=== PATIENT | female | born 1990 | race African-American/Black ===

== ENCOUNTER 2022-03-15 10:31 | Emergency (ER) | payer OTHER ==
[2022-03-15 10:45] LABS: Urine Blood 3+ (Negative); Urine Glucose Negative (Negative); Urine Protein Trace (Negative)
[2022-03-15] MEDS ORDERED: CEFTRIAXONE 1000 MG/VIAL ONE (11:01)
[2022-03-15] MEDS ORDERED: NA CHLORIDE 0.9% 1,000 ML ONE ×2 (11:01→16:51)
[2022-03-15] MEDS ORDERED: NA CHLORIDE 0.9% 50 ML IV ONE (11:03)
--- NOTE | 2022-03-15 11:48 | RAD REPORT ---
EXAM DESCRIPTION: CT - Stone Protocol - 03/15/2022 11:41 am CLINICAL HISTORY: Flank pain. Pyelo COMPARISON: No comparisons TECHNIQUE: Axial images were obtained without oral or IV contrast. Lack of contrast limits solid org an and vascular assessment. The [id number] spans the entirety of the system partially obscuring uppermost abdomen and lung bases. Coronal reformatted images were obtained and reviewed. All CT scans are performed using dose optimization technique as appropriate and may include automated exposure control or mA/KV adjustment according to patient size. FINDINGS: The lower lung kaufman are clear. Imaged portions of the liver and spleen show no suspicious findings on non-contrast imaging. The panc reas and adrenal glands are normal. No pathologic lymphadenopathy in the abdomen or pelvis. 6 mm stone is present left mid ureter with moderate left hydronephrosis. No additional genitourinary stones or significant hydronephrosis. No bowel obstruction, free air, free fluid or abscess. Normal appendix noted.Small fat containing umb ilical hernia. 4 cm left adnexal cyst. No significant bony abnormality. IMPRESSION: 6 mm stone left mid ureter resulting in moderate left hydronephrosis.
[2022-03-15 12:01] LABS: Absolute Lymphocytes (CBC) 1.5 K/uL (0.7-4.9); Lymphocytes % 8.9 % (15.3-44.8); MCV 86.7 fL (80-100); RBC Red Blood Cell Count 4.73 M/uL (3.86-4.86)
[2022-03-15 12:20] LABS: Albumin 3.5 g/dL (3.4-5.0); Bilirubin Total 0.5 mg/dL (0.2-1.0); Potassium 3.4 mmol/L (3.5-5.1); Protein, Total 9.1 g/dL (6.4-8.2)
[2022-03-15] MEDS ORDERED: TAMSULOSIN 0.4 MG SR CAP ONE (12:36)
[2022-03-15] MEDS ORDERED: PROMETHAZINE INJ 25 MG/ML AMP ONE (12:37)
[2022-03-15] MEDS ORDERED: KETOROLAC 30 MG/ML INJ ONE (12:37)
[2022-03-15 13:04] LABS: SARS-CoV-2 Antigen Rapid Res Negative (Negative)
--- NOTE | 2022-03-15 13:55 | EDPHYS ---
Physician Documentation [facility] Name: Emilio Hernández Age: 31 yrs Sex: Female : 1990 Arrival Date: 03/15/2022 Time: 10:33 Bed 16 Private MD: ED Physician Drake Potter HPI: 03/15 11:21 This 31 yrs old Black Female presents to ER via Ambulatory with complaints of Abdominal snw Pain, Back Pain, Pelvic Pain, Fever. 11:21 The patient presents with abdominal pain in the lower abdomen, left flank. Onset: The snw symptoms/episode began/occurred suddenly, 1 day(s) ago, and became persistent. The symptoms radiate to the right flank. Associated signs and symptoms: Pertinent positives: nausea and vomiting, fever. The symptoms are described as shooting, steady. Modifying factors: The symptoms are alleviated by nothing. Severity of pain: At its worst the pain was severe in the emergency department the pain is unchanged. The patient has not experienced similar symptoms in the past. It is unknown whether or not the patient has recently seen a physician. 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 - Social history:: Smoking status: Patient denies any tobacco usage or history of. ROS: 11:19 Eyes: Negative for injury, pain, redness, and discharge, ENT: Negative for injury, snw pain, and discharge, Neck: Negative for injury, pain, and swelling, Cardiovascular: Negative for chest pain, palpitations, and edema, Respiratory: Negative for shortness of breath, cough, wheezing, and pleuritic chest pain. 11:19 MS/Extremity: Negative for injury and deformity, Skin: Negative for injury, rash, and discoloration, Neuro: Negative for headache, weakness, numbness, tingling, and seizure. 11:19 Constitutional: Positive for body aches, fever, malaise, poor PO intake. 11:19 Abdomen/GI: Positive for abdominal pain, nausea and vomiting. 11:19 Back: Positive for flank pain, on the left. 11:19 : Positive for urinary frequency. Exam: 11:15 Head/Face: Normocephalic, atraumatic. snw 11:15 Constitutional: The patient appears alert, awake, uncomfortable. 11:19 Skin: Warm, dry with normal turgor. Normal color with no rashes, no lesions, and no snw evidence of cellulitis. MS/ Extremity: Pulses equal, no cyanosis. Neurovascular intact. Full, normal range of motion. Neuro: Awake and alert, GCS 15, oriented to person, place, time, and situation. Cranial nerves II-XII grossly intact. Motor strength 5/5 in all extremities. Sensory grossly intact. Cerebellar exam normal. Normal gait. Psych: Awake, alert, with orientation to person, place and time. Behavior, mood, and affect are within normal limits. 11:19 Eyes: Pupils equal round and reactive to light, extra-ocular motions intact. Lids and lashes normal. Conjunctiva and sclera are non-icteric and not injected. Cornea within normal limits. Periorbital areas with no swelling, redness, or edema. ENT: Nares patent. No nasal discharge, no septal abnormalities noted. Tympanic membranes are normal and external auditory canals are clear. Oropharynx with no redness, swelling, or masses, exudates, or evidence of obstruction, uvula midline. Mucous membranes moist. Neck: Trachea midline, no thyromegaly or masses palpated, and no cervical lymphadenopathy. Supple, full range of motion without nuchal rigidity, or vertebral point tenderness. No Meningismus. Chest/axilla: Normal chest wall appearance and motion. Nontender with no deformity. No lesions are appreciated. Cardiovascular: Tachycardic rate and rhythm with a normal S1 and S2. No gallops, murmurs, or rubs. Normal PMI, no JVD. No pulse deficits. Respiratory: Lungs have equal breath sounds bilaterally, clear to auscultation and percussion. No rales, rhonchi or wheezes noted. No increased work of breathing, no retractions or nasal flaring. 11:19 Abdomen/GI: Inspection: obese Bowel sounds: normal, Palpation: mild abdominal tenderness, in the posterior aspect of left lateral abdomen. 11:19 Back: pain, that is mild, that is moderate, CVA tenderness, that is moderate, is noted on the left. Vital Signs: 10:37 BP 146 / 91; Pulse 113; Resp 20; Temp 98.6; Pulse Ox 99% ; Weight 99.79 kg; Height 5 db ft. 4 in. (162.56 cm); Pain 4/10; 11:00 BP 129 / 98; Pulse 102; Resp 16; Pulse Ox 100% on R/A; db 12:30 BP 133 / 95; Pulse 97; Resp 18; Pulse Ox 100% on R/A; db 13:00 BP 120 / 66; Pulse 94; Resp 18; Temp 99(O); Pulse Ox 98% ; db 14:00 BP 149 / 86; Pulse 110; Resp 16; Pulse Ox 99% ; db 16:45 BP 138 / 097; Pulse 120; Resp 20; Temp 101; Pulse Ox 100% ; db 10:37 Body Mass Index 37.76 (99.79 kg, 162.56 cm) db MDM: 10:40 Patient medically screened. snw 13:54 Data reviewed: vital signs, nurses notes. Data interpreted: Pulse oximetry: on room air snw is 99 %. Interpretation: normal. Counseling: I had a detailed discussion with the patient and/or guardian regarding: the historical points, exam findings, and any diagnostic results supporting the discharge/admit diagnosis, the presence of at least one elevated blood pressure reading (>120/80) during this emergency department visit, lab results, radiology results, the need to transfer to another facility, [facility] does not immediately have the required specialist. Physician consultation: Dr Green was called at 13:55, was contacted at 13:55, regarding regarding transfer, to [facility]. 03/15 10:46 Order name: Urine Dipstick-Ancillary; Complete Time: 10:47 EDMS 03/15 10:48 Order name: Urine --Ancillary (enter results); Complete Time: 11:07 eb 03/15 10:54 Order name: Blood Culture Adult (2) snw 03/15 10:54 Order name: CBC with Diff; Complete Time: 12:04 snw 03/15 10:54 Order name: CMP; Complete Time: 12:23 snw 03/15 10:54 Order name: Lactate; Complete Time: 12:23 snw 03/15 10:54 Order name: Stone Protocol CT; Complete Time: 11:58 snw 03/15 12:37 Order name: SARS RAPID; Complete Time: 13:09 snw 03/15 10:54 Order name: IV Saline Lock - Large Bore; Complete Time: 11:56 snw 03/15 10:54 Order name: Labs collected and sent; Complete Time: 11:56 snw 03/15 10:54 Order name: O2 Per Protocol; Complete Time: 13:46 snw 03/15 10:54 Order name: O2 Sat Monitoring; Complete Time: 13:46 snw 03/15 10:54 Order name: Vital Signs; Complete Time: 13:46 snw Administered Medications: 12:20 Drug: NS 0.9% 1000 ml Route: IV; Rate: 1 bolus; Site: left antecubital; db 15:27 Follow up: Response: No adverse reaction; IV Status: Completed infusion; IV Intake: db 1000ml 12:20 Drug: Rocephin (cefTRIAXone) 1 grams Route: IV; Rate: calculated rate; Site: left db antecubital; 12:45 Follow up: Response: No adverse reaction; IV Status: Completed infusion; IV Intake: 50mldb 12:57 Drug: Flomax (tamsulosin) 0.4 mg Route: PO; db 14:05 Follow up: Response: No adverse reaction db 12:57 Drug: Phenergan (promethazine) 25 mg Route: IM; Site: right deltoid; db 13:35 Follow up: Response: No adverse reaction db 12:57 Drug: Ketorolac 15 mg Route: IVP; Site: left antecubital; db 13:35 Follow up: Response: No adverse reaction db 16:52 Drug: Motrin (ibuprofen) 600 mg Route: PO; db 16:56 Follow up: Response: No adverse reaction db 16:52 Drug: NS 0.9% 1000 ml Route: IV; Rate: 1 bolus; Site: left forearm; db 16:56 Follow up: Response: No adverse reaction; IV Status: Infusion continued upon transfer db Disposition: 17:09 Co-signature as Attending Physician, Drake MENDES was immediately available onsite ms3 in the emergency department for consultation in the care of the patient. Disposition Summary: 03/15/22 13:54 Transfer Ordered Transfer Location: [facility] snw Reason: Higher level of care snw Condition: Stable snw Problem: new snw Symptoms: have improved snw Accepting Physician: Dr. Green(03/15/22 17:00) db Diagnosis - Hydronephrosis with renal and ureteral calculous obstruction snw - Leukocytosis snw Forms: - Medication Reconciliation Form snw - SBAR form snw Signatures: Dispatcher [employer] EDMS Alisa Willams, NETWORK SYSTEMS ANALYST-C NETWORK SYSTEMS ANALYST-Csnw Drake Potter, DO ms3 Merced Vivas RN RN db Corrections: (The following items were deleted from the chart) 11: 11:19 Eyes: Pupils equal round and reactive to light, extra-ocular motions intact. Lids snw and lashes normal. Conjunctiva and sclera are non-icteric and not injected. Cornea within normal limits. Periorbital areas with no swelling, redness, or edema. ENT: Nares patent. No nasal discharge, no septal abnormalities noted. Tympanic membranes are normal and external auditory canals are clear. Oropharynx with no redness, swelling, or masses, exudates, or evidence of obstruction, uvula midline. Mucous membranes moist. Neck: Trachea midline, no thyromegaly or masses palpated, and no cervical lymphadenopathy. Supple, full range of motion without nuchal rigidity, or vertebral point tenderness. No Meningismus. Chest/axilla: Normal chest wall appearance and motion. Nontender with no deformity. No lesions are appreciated. Cardiovascular: Regular rate and rhythm with a normal S1 and S2. No gallops, murmurs, or rubs. Normal PMI, no JVD. No pulse deficits. Respiratory: Lungs have equal breath sounds bilaterally, clear to auscultation and percussion. No rales, rhonchi or wheezes noted. No increased work of breathing, no retractions or nasal flaring. snw 13:55 11:19 : Positive for urinary frequency, snw snw 13:56 11:19 Back: Positive for flank pain, on the right, snw snw 13:57 11:19 Abdomen/GI: Inspection: obese Bowel sounds: normal, Palpation: mild abdominal snw tenderness, in the posterior aspect of right lateral abdomen, snw 13:57 11:19 Back: pain, that is mild, that is moderate, CVA tenderness, that is moderate, is snw noted on the right, snw 13:58 11:21 The patient presents with abdominal pain in the lower abdomen, right flank snw snw 15: 13:54 Dr. Norma brewster db 17:00 15:09 Dr. Green db db
--- NOTE | 2022-03-15 13:55 | ER ---
Nurse's Notes [facility] Name: Emilio Hernández Age: 31 yrs Sex: Female : 1990 Arrival Date: 03/15/2022 Time: 10:33 Bed 16 Private MD: Diagnosis: Hydronephrosis with renal and ureteral calculous obstruction;Leukocytosis Presentation: 03/15 10:37 Chief complaint: Patient states: states has left back pain to abdomen lower back pain db that radiates to left abdomen pain started 2 days ago on Wednesday and fever this AM of 102. Coronavirus screen: Vaccine status: Patient reports being unvaccinated. Client denies travel out of the [place] in the last 14 days. Ebola Screen: Patient negative for fever greater than or equal to 101.5 degrees Fahrenheit, and additional compatible Ebola Virus Disease symptoms Patient denies exposure to infectious person. Patient denies travel to an Ebola-affected area in the 21 days before illness onset. No symptoms or risks identified at this time. Initial Sepsis Screen: Does the patient meet any 2 criteria? HR > 90 bpm. No. Patient's initial sepsis screen is negative. Does the patient have a suspected source of infection? No. Patient's initial sepsis screen is negative. Risk Assessment: Do you want to hurt yourself or someone else? Patient reports no desire to harm self or others. Onset of symptoms was March 13, 2022. 10:37 Method Of Arrival: Ambulatory db 10:37 Acuity: BALJINDER 3 db Triage Assessment: 10:55 General: Appears in no apparent distress. uncomfortable, Behavior is calm, cooperative, db appropriate for age, quiet. Pain: Complains of pain in back and abdomen. EENT: No deficits noted. No signs and/or symptoms were reported regarding the EENT system. Neuro: No deficits noted. Level of Consciousness is awake, alert, obeys commands, Oriented to person, place, time, situation, Appropriate for age. Cardiovascular: No deficits noted. Respiratory: No deficits noted. GI: Abd is soft Abdomen is tender to palpation in left lower quadrant Reports lower abdominal pain. : No deficits noted. No signs and/or symptoms were reported regarding the genitourinary system. Derm: No deficits noted. No signs and/or symptoms reported regarding the dermatologic system. Musculoskeletal: No deficits noted. No signs and/or symptoms reported regarding the musculoskeletal system. 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 - Social history:: Smoking status: Patient denies any tobacco usage or history of. Screenin:57 Abuse screen: Denies threats or abuse. Denies injuries from another. Nutritional db screening: No deficits noted. Tuberculosis screening: No symptoms or risk factors identified. Fall Risk None identified. No fall in past 12 months (0 pts). No secondary diagnosis (0 pts). No IV (0 pts). Ambulatory Aid- None/Bed Rest/Nurse Assist (0 pts). Gait- Normal/Bed Rest/Wheelchair (0 pts) Mental Status- Total Álvarez Fall Scale indicates No Risk (0-24 pts). Assessment: 10:57 Reassessment: see triage assessment for initial assessment. GI: Bowel sounds present X db 4 quads. 12:00 Reassessment: Patient appears in no apparent distress at this time. No changes from db previously documented assessment. Patient and/or family updated on plan of care and expected duration. Pain level reassessed. Patient is alert, oriented x 3, equal unlabored respirations, skin warm/dry/pink. Patient states feeling better. Patient states symptoms have improved. Neuro: No deficits noted. Level of Consciousness is awake, alert, obeys commands, Oriented to person, place, time, situation, Appropriate for age Speech is normal. 13:00 Reassessment: Patient appears in no apparent distress at this time. No changes from db previously documented assessment. Patient and/or family updated on plan of care and expected duration. Pain level reassessed. Patient is alert, oriented x 3, equal unlabored respirations, skin warm/dry/pink. 14:11 Reassessment: Patient appears in no apparent distress at this time. No changes from db previously documented assessment. Patient and/or family updated on plan of care and expected duration. Pain level reassessed. Patient is alert, oriented x 3, equal unlabored respirations, skin warm/dry/pink. Patient states feeling better. 15:00 Reassessment: Patient appears in no apparent distress at this time. No changes from db previously documented assessment. Patient and/or family updated on plan of care and expected duration. Pain level reassessed. Patient is alert, oriented x 3, equal unlabored respirations, skin warm/dry/pink. Patient states feeling better. Reassessment: Patient states feeling better. General: Appears in no apparent distress. comfortable, Behavior is calm, cooperative, appropriate for age. Pain: Complains of pain in left flank pain radiating to abdomen. Cardiovascular: No deficits noted. Respiratory: No deficits noted. Airway is patent Respiratory effort is even, unlabored, Respiratory pattern is regular, symmetrical. GI: No deficits noted. No signs and/or symptoms were reported involving the gastrointestinal system. : No deficits noted. No signs and/or symptoms were reported regarding the genitourinary system. EENT: No deficits noted. No signs and/or symptoms were reported regarding the EENT system. 15:28 Reassessment: patient stated wanted to leave AMA. Physician spoke with patient and now patient wants to stay and be transferred for continued care. Vital Signs: 10:37 BP 146 / 91; Pulse 113; Resp 20; Temp 98.6; Pulse Ox 99% ; Weight 99.79 kg; Height 5 db ft. 4 in. (162.56 cm); Pain 4/10; 11:00 BP 129 / 98; Pulse 102; Resp 16; Pulse Ox 100% on R/A; db 12:30 BP 133 / 95; Pulse 97; Resp 18; Pulse Ox 100% on R/A; db 13:00 BP 120 / 66; Pulse 94; Resp 18; Temp 99(O); Pulse Ox 98% ; db 14:00 BP 149 / 86; Pulse 110; Resp 16; Pulse Ox 99% ; db 16:45 BP 138 / 097; Pulse 120; Resp 20; Temp 101; Pulse Ox 100% ; db 10:37 Body Mass Index 37.76 (99.79 kg, 162.56 cm) ED Course: 10:33 Patient arrived in ED. mr 10:40 Al[facility] Willams [facility]-C [facility]. snw 10:40 Drake Potter DO is Attending Physician. snw 10:52 Merced Vivas, RN is Primary Nurse. db 10:55 Triage completed. db 10:55 Arm band placed on right wrist. db 10:57 Patient has correct armband on for positive identification. Bed in low position. Call db light in reach. Side rails up X 1. 11:13 Missed attempt(s): 20 gauge in left. db 11:13 Missed attempt(s): 20 gauge in right antecubital area. db 11:[address] In Process Unspecified. EDMS 11:48 Missed attempt(s): 22 gauge in left wrist. Bleeding controlled, band aid applied, jw7 catheter tip intact. 11:56 Inserted saline lock: 22 gauge in left antecubital area, using aseptic technique. Blood ss collected. 13:21 initiated a transfer with TALON Chacon from the [facility]. eb 13:[address] Green with Alisa Pickard for patient transfer consultation. eb 14:40 administrative approval given by TALON Chacon / patient has been accepted to [facility] 5th floor r 512/ Dr. Green has accepted the patient in transfer/ report to be called to [phone]. 15:42 No provider procedures requiring assistance completed. db 15:45 Report given to Report given to ERIKA Zambrano at receiving hospital going to 5th floor. db 16:45 Pulse ox on. NIBP on. Warm blanket given. db 16:45 Patient transferred, IV remains in place. db Administered Medications: 12:20 Drug: NS 0.9% 1000 ml Route: IV; Rate: 1 bolus; Site: left antecubital; db 15:27 Follow up: Response: No adverse reaction; IV Status: Completed infusion; IV Intake: db 1000ml 12:20 Drug: Rocephin (cefTRIAXone) 1 grams Route: IV; Rate: calculated rate; Site: left db antecubital; 12:45 Follow up: Response: No adverse reaction; IV Status: Completed infusion; IV Intake: 50mldb 12:57 Drug: Flomax (tamsulosin) 0.4 mg Route: PO; db 14:05 Follow up: Response: No adverse reaction db 12:57 Drug: Phenergan (promethazine) 25 mg Route: IM; Site: right deltoid; db 13:35 Follow up: Response: No adverse reaction db 12:57 Drug: Ketorolac 15 mg Route: IVP; Site: left antecubital; db 13:35 Follow up: Response: No adverse reaction db 16:52 Drug: Motrin (ibuprofen) 600 mg Route: PO; db 16:56 Follow up: Response: No adverse reaction db 16:52 Drug: NS 0.9% 1000 ml Route: IV; Rate: 1 bolus; Site: left forearm; db 16:56 Follow up: Response: No adverse reaction; IV Status: Infusion continued upon transfer db Medication: 10:57 VIS not applicable for this client. db Intake: 12:45 IV: 50ml; Total: 50ml. db 15:27 IV: 1000ml; Total: 1050ml. db Outcome: 13:54 ER care complete, transfer ordered by . snnancy 15:09 Patient left the ED. db 16:45 Transferred by ground EMS to [facility], Transfer form completed. db X-rays sent w/ patient. Note: [facility] Rudolph 16:45 Condition: stable 16:45 Instructed on the need for admit. 17:00 Patient left the ED. db Signatures: Dispatcher [employer] Alisa Mar, TRANSIT CLERK-C TRANSIT CLERK-Csnw MorrsiMallorie Shelby, RN RN Bonnie Teague Jodi [id number] Benton, Danielle, RN RN db
--- NOTE | 2022-03-15 15:06 | P.CNS ---
Date of Consult: 03/15/22 Reason for Consult: Obstructive uropathy Requesting Physician: Alisa Willams Chief Complaint: Flank pain History of Present Illness: Patient is a 31yo who was admitted to the Allergies No Known Allergies Allergy (Unverified 08/18/11 19:55) Home Medications: Cefdinir [Cefdinir*] 300 mg PO BID #20 cap 03/15/22 Hydrocodone 5/APAP 325 [Anderson 5/325] 1 tab PO Q6H PRN #20 tab 03/15/22 - Past Medical/Surgical History Past Medical History: Patient denies medical history Past Surgical History: Patient denies surgical history - Family History Mother Family History: Reviewed- Non-Contributory - Social History Smoking Status: Never smoker Alcohol use: No CD- Drugs: No Caffeine use: No Review of Systems 10-point ROS is otherwise unremarkable Physical Examination reviewed General: Alert, In no apparent distress, Oriented x3 HEENT: Atraumatic, PERRLA, Mucous membr. moist/pink, EOMI, Sclerae nonicteric Neck: Supple, 2+ carotid pulse no bruit, No LAD, Without JVD or thyroid abnormality Respiratory: Clear to auscultation bilaterally, Normal air movement Cardiovascular: Regular rate/rhythm, Normal S1 S2 Gastrointestinal: Normal bowel sounds, Soft and benign, Non-distended, Tenderness Musculoskeletal: Tenderness Integumentary: No rashes Neurological: Normal gait, Normal speech, Normal tone, Sensation intact, Cranial nerves 3-12 intact, Normal affect Lymphatics: No axilla or inguinal lymphadenopathy Laboratory Data (last 24 hrs) 03/15/22 11:52: Sodium 132 L, Potassium 3.4 L, BUN 6 L, Creatinine 0.97, Glucose 122 H, Total Bilirubin 0.5, AST 16, ALT 19, Alkaline Phosphatase 98 03/15/22 11:52: WBC 16.70 H, Hgb 13.4, Hct 41.0, Plt Count 329 - Problems (1) Obstructive uropathy Current Visit: Yes Status: Acute (2) UTI (urinary tract infection) Current Visit: Yes Status: Acute Conclusions/ Impression: PLAN: 1. Recommend transfer to urologist for definitive treatment 2. Strain urine 3. IVFs 4. IV antibiotics 5. Pain control 6. GI/DVT prophylaxis Patient is contemplating going home first before going to Urologist-if she goes home she will need to sign out AMA; but I will help her out by calling in antibiotics and pain medication and I have advised her to drink a lot of fluids and to come back to ER if pain does not subside in 24hrs
[2022-03-15] MEDS ORDERED: IBUPROFEN 200 MG TAB PO ONE (16:51)
[2022-03-15 17:13] VITALS: BP 138/097; TEMP 101; O2SAT 100
[2022-03-19] MEDS ORDERED: IBUPROFEN 100 MG/5 ML UCUP ONE (13:14)
[2022-03-21] MEDS ORDERED: ASPIRIN 81 MG CHEWABLE TABLET ONE (22:28)
[2022-03-21] MEDS ORDERED: HEPARIN 5000 UNIT/ML 1 ML VIAL ONE (22:55)
[2022-03-21] MEDS ORDERED: HEPARIN/D5W 25,000 UNIT/500 ML BAG IV ONE (22:56)
== END 2022-03-15 17:00 | disposition short-term general hospital (02) ==
LOC: ER 10:31
DX: N13.2 Hydronephrosis with renal and ureteral calculous obstruction (principal); D72.829 Elevated white blood cell count, unspecified; Z20.822 Contact with and (suspected) exposure to COVID-19
CPT/HCPCS: 96365; 96361; 87040 ×2; 85025; 36415; 87205; 81025; 83605; 87077; 87186; 81003; 80053; 76377; 74176; 96375; 96372; 99285; 87811; J2550; J7030 ×2

== ENCOUNTER 2022-05-26 07:28 | Day surgery (SDC) | payer OTHER ==
--- NOTE | 2022-05-14 15:57 | RAD REPORT ---
EXAM DESCRIPTION: RAD - Chest Pa And Lat (2 Views) - 05/14/2022 3:51 pm CLINICAL HISTORY: Pre op pending surgery Chest pain. COMPARISON: Abdomen 1 View (KUB) dated 05/14/2022 FINDINGS: The lungs are clear. The heart is normal in size. No displaced fractures. IMPRESSION: No acute or concerning finding suspected.
--- NOTE | 2022-05-14 15:57 | RAD REPORT ---
EXAM DESCRIPTION: RAD - Abdomen 1 View (KUB) - 05/14/2022 3:51 pm CLINICAL HISTORY: Pre op pending ureteroscopy, laser lithotripsy... Pain COMPARISON: No comparisons FINDINGS: The bowel gas pattern is non-obstructive. No evidence of free air or pneumatosis. Left juan david ble-J stent is in place. No abnormal calcifications evident. No significant bony findings. IMPRESSION: Left double-J stent is in expected positioning. No abnormal calcifications visualized.
[2022-05-14 16:06] LABS: Absolute Lymphocytes (CBC) 3.4 K/uL (0.7-4.9); Hematocrit 38.4 % (36.0-45.0); Lymphocytes % 31.8 % (15.3-44.8); MCV 84.9 fL (80-100); MPV 7.6 fL (7.6-11.3); RBC Red Blood Cell Count 4.52 M/uL (3.86-4.86)
[2022-05-14 16:10] LABS: Protime INR 1.15
[2022-05-14 16:36] LABS: Potassium 3.7 mmol/L (3.5-5.1)
--- NOTE | 2022-05-16 17:43 | EKG ---
Test Date: 2022-05-14 Test Time: 15:32:10 Corn Cooker: CHERYL MEASUREMENT RESULTS: Intervals: Rate: 76 SC: 148 QRSD: 94 QT: 370 QTc: 416 [place]: P: 47 SC: 148 QRS: 71 T: 37 INTERPRETIVE STATEMENTS: Normal sinus rhythm Normal ECG Compared to ECG 06/25/2013 12:02:48 Sinus arrhythmia no longer present Electronically Signed On 05-16-22 17:40:24 KEYBOARD OPERATOR by Umer Jones
[~2022-05-26 07:28] MED LIST: Gentamicin Inj 240 MG in NA CHLORIDE 0.9% 100 ML IV SCH
[2022-05-26] MEDS ORDERED: MIDAZOLAM HCL 2 MG/2 ML INJ ONE (07:51)
[2022-05-26] MEDS ORDERED: FENTANYL CITR 100 MCG/2 ML ONE ×2 (07:52→10:17)
[2022-05-26] MEDS ORDERED: propofoL 200 MG/20 ML VIAL IV ONE (07:52)
[2022-05-26] MEDS ORDERED: ROCURONIUM 50 MG/5 ML VIAL IV ONE (07:53)
[2022-05-26] MEDS ORDERED: ONDANSETRON 4 MG/2 ML VIAL ONE ×2 (07:53→10:27)
[2022-05-26] MEDS ORDERED: LIDOCAINE 2% MPF 5 ML VIAL ONE (07:53)
[2022-05-26] MEDS ORDERED: AMPICILLIN SODIUM 2 GM/VIAL VIAL ONE (07:55)
[2022-05-26] MEDS ORDERED: Ringers Lactate 1,000 ML IV ONE (07:55)
[2022-05-26 09:04] LABS: Urine Specific Gravity/Preg 1.025 (1.005-1.030)
[2022-05-26] MEDS ORDERED: KETOROLAC 30 MG/ML INJ ONE (09:36)
[2022-05-26] MEDS ORDERED: dexAMETHasone 10 MG/ML VIAL ONE (09:36)
[2022-05-26] MEDS ORDERED: Mastisol Adhesive Liq ONE (09:38)
[2022-05-26] MEDS ORDERED: NEOSTIGMINE 1 MG/ML -10 ML VIAL ONE (09:40)
[2022-05-26] MEDS ORDERED: GLYCOPYRROLATE 0.2 MG/ML SYR ONE (09:40)
[2022-05-26] MEDS ORDERED: MEPERIDINE HCL 25 MG/ML SYR ONE (09:42)
[2022-05-26] MEDS ORDERED: PHENAZOPYRIDINE 100MG TAB PO ONE (10:23)
[2022-05-26] MEDS ORDERED: HYDROCODONE/APAP 5/325 MG TAB PO PRN (10:23)
--- NOTE | 2022-05-26 10:24 | RAD REPORT ---
EXAM DESCRIPTION: RAD - Urethrocystogrphy Retrograde - 05/26/2022 9:55 am CLINICAL HISTORY: ICD N 20.0 FINDINGS: Nine fluoroscopic spot images obtained. Fluoroscopy time 0.16 minutes Left ureter was cannulated and contrast administered. Subsequently an ureteral stent was placed. Exam ination was performed by Dr Dewitt
[2022-05-26 11:19] VITALS: BP 108/62; TEMP 97.5; O2SAT 95
--- NOTE | 2022-05-27 08:03 | OP ---
Surgeon: VISH WAYNE Preoperative Diagnosis: Left ureterolithiasis, 6 mm. Postoperative Diagnosis: Left ureterolithiasis, 4 to 5 mm. Principal Procedures: 1.Cystoscopy with left retrograde pyelography. 2.Left ureteroscopy with stone basketing, left. 3.Left pyeloscopy. 4.Left ureteral stent exchange. Indication For Procedure: Ms. Hernández presented to the Urology Clinic in evaluation of her first cheikh e stone forming event with a 6 mm left ureteral calculus. She was seen in the Emergency Department a nd admitted because of signs of potential sepsis associated with the stone. She underwent cystoscopy with left ureteral stent placement with Dr. Mauro back on March 15, 2022, but because of some travel limitations, she wished definitive surgical management locally. Of note, she had signs of a u rinary tract infection/cystitis with serratia seen in her urine that was treated preoperatively with Bactrim. The prescription was sent on Wednesday, but the patient did not start taking it until Wednesday e ven. Procedure In Detail: The patient was consented in the preoperative holding area before being transfe rred to the operative suite where general anesthesia was induced. She was given ampicillin 2 g and g entamicin 240 mg IV antimicrobial prophylaxis, and Pneumoboots were provided for DVT prophylaxis. Sh mónica was placed in the lithotomy position, padded and secured to the table appropriately. Her genitalia were prepped with Hibiclens and she was draped in standard fashion. The case was begun using a 22-F rench rigid cystoscope to traverse the urethra and into the bladder with ease. The bladder was surve yed and there was evidence of acute cystitis active. The urine was otherwise clear and free of signi ficant debris or purulence. The ureteral orifices were orthotopic in location, and the left ureteral orifice was identified with the stent emanating from it. I thus grasped the stent using an [employer] grasper and delivered it to the meatus. I passed a Sensor wire up the stent and was able to coil i t successfully within the putative upper pole of the kidney. Over the wire, the stent was removed an d a dual-lumen catheter was placed into the mid distal ureter. A retrograde pyelogram was then perfo rmed. Left retrograde pyelography: Using a 70:30 mixture of Omnipaque and saline, contrast was injected vi a the second lumen of the dual-lumen catheter and did propagate the distal into the mid and proximal ureter before entering the renal pelvis, which had signs of mild pelvocaliectasis. No stone was visi ble fluoroscopically. As a result, I removed the dual-lumen catheter and performed direct vision meredith irigid ureteroscopy into the mid ureter where an approximately 4 to 5 mm calculus was encountered. B ecause the ureter was nicely dilated, I was able to utilize a 1.9-Pashto 0 tip Nitinol basket to gras p the stone and deliver it via the ureteral orifice and out of the meatus intact. This was sent for chemical analysis. I then placed the dual-lumen catheter again and placed a Bentson guidewire via th e second lumen of the dual-lumen catheter. Over the Bentson guidewire, I then passed a flexible digi jani ureteroscope with ease into her upper pole and surveyed the calyces of the kidney. None of the c alyces had any evident stone or significant Sid plaque. As a result, I surveyed the proximal leonard n into the mid and distal ureter on the way out. While there was some proximal edema of the ureter, no significant strictured disease or disruption to the mucosa was noted. As a result, I removed the ureteroscope and back loaded the cystoscope over the indwelling safety wire. I then passed a 6-Frenc h x 24 cm double-J ureteral stent with the coil observed fluoroscopically in the upper pole and one c ystoscopically formed in her bladder. I then decompressed her bladder off fluid and urine, and secur ed the tether of the stent to her introitus. She tolerated the procedure well and without complicati ons. She was then awakened from general anesthesia, transferred to a stretcher, and then to the recovery r o in good condition. Complications: None. Discharge Disposition: I would like for her to keep the ureteral stent for about 5 days to 7 days иван chatman, and she may have it removed in the Urology Clinic as it is on its tether. She will continue a nd complete the remaining 8 days of the Bactrim prescribed preoperatively, which will cover her durin g the duration of the stent being in place as well as treat the active cystitis observed. Since she is a first time stone former, she should be instructed to increase the volume of her fluid intake and add lemon juice or cranberry juice to her diet to decrease the risk of future stone forming event. Specifically, she should drink enough fluid to have a full bladder and need to void at least every 3 hours during the day to decrease the stone forming risk. HE/CARLA Voice ID: [id number] Report ID: [id number]
== END 2022-05-26 11:53 | disposition home or self-care (01) ==
LOC: OR 07:28
PROVIDERS: ATTEND Urology
PROC: 0T778DZ Dilation of Left Ureter with Intraluminal Device, Via Natural or Artificial Opening Endoscopic (ICD-10-PCS; 2022-05-26)
PROC: 0TC78ZZ Extirpation of Matter from Left Ureter, Via Natural or Artificial Opening Endoscopic (ICD-10-PCS; principal; 2022-05-26 08:30)
DX: N20.1 Calculus of ureter (principal)
CPT/HCPCS: 93005; 87088; 85025; 87086; 80048; 36415; 81025; 85610; 88300; 87077; 87186; 82360; 74018; 71046; 74450; 51610; 52352; 52332; J2704; J2710; J1580; J2001; J2250; J3010 ×2; J1100; J2175; J7120; J2405 ×2; J0290

== ENCOUNTER 2023-08-19 08:41 | Emergency (ER) | payer OTHER ==
[2023-08-19 09:43] LABS: SARS-CoV-2 Antigen CONTROL BLUE LINE VIS/BG OK; SARS-CoV-2 Antigen Rapid Res Negative (Negative)
--- NOTE | 2023-08-19 10:35 | ER ---
Nurse's Notes [facility] Name: Emilio Hernández Age: 32 yrs Sex: Female : 1990 Arrival Date: 08/19/2023 Time: 08:41 Bed 20 Private MD: Diagnosis: Acute upper respiratory infection, unspecified;Acute pharyngitis, unspecified Presentation: 08/18 08:56 Chief complaint: Patient states: 2 days ago , her ears and throat feel swollen , took iw DayQuil this morning. Coronavirus screen: Client presents with at least one sign or symptom that may indicate coronavirus-19. Ebola Screen: Patient negative for fever greater than or equal to 101.5 degrees Fahrenheit, and additional compatible Ebola Virus Disease symptoms Patient denies exposure to infectious person. Patient denies travel to an Ebola-affected area in the 21 days before illness onset. No symptoms or risks identified at this time. Initial Sepsis Screen: Does the patient meet any 2 criteria? No. Patient's initial sepsis screen is negative. Does the patient have a suspected source of infection? No. Patient's initial sepsis screen is negative. Risk Assessment: Do you want to hurt yourself or someone else? Patient reports no desire to harm self or others. Onset of symptoms was August 17, 2023. 08:56 Method Of Arrival: Ambulatory iw 08:56 Acuity: BALJINDER 4 iw Historical: - Allergies: 08:58 No Known Allergies; iw - Home Meds: 08:58 None [Active]; iw - PMHx: 08:58 None; iw - PSHx: 08:58 section; iw 08:58 kidney stent X 2; iw - Immunization history:: Adult Immunizations not up to date. - Infectious Disease History:: Denies. - Social history:: Smoking status: Reported history of juuling and/or vaping. Screenin:10 [facility] ED Fall Risk Assessment (Adult) History of falling in the last 3 months, nj1 including since admission No falls in past 3 months (0 pts) Confusion or Disorientation No (0 pts) Intoxicated or Sedated No (0 pts) Impaired Gait No (0 pts) Mobility Assist Device Used No (0 pt) Altered Elimination No (0 pt) Score/Fall Risk Level 0 - 2 = Low Risk Oriented to surroundings, Maintained a safe environment, Hourly rounding (assess needs \T\ fall precautionary measures) done. Abuse screen: Denies threats or abuse. Denies injuries from another. Nutritional screening: No deficits noted. Tuberculosis screening: No symptoms or risk factors identified. Assessment: 09:09 General: Appears in no apparent distress. comfortable, Behavior is calm, cooperative, nj1 appropriate for age. Pain: Complains of pain in throat and ears Pain currently is 4 out of 10 on a pain scale. Neuro: No deficits noted. Cardiovascular: Patient's skin is warm and dry. Respiratory: Airway is patent Respiratory effort is even, unlabored. EENT: Reports pain in throat and ears painful swallowing. 10:47 Reassessment: Patient appears in no apparent distress at this time. Patient is alert, nj1 oriented x 3, equal unlabored respirations, skin warm/dry/pink. Vital Signs: 08:56 BP 161 / 110; Pulse 81; Resp 16; Temp 98; Pulse Ox 100% ; Weight 104.33 kg; Height 5 iw ft. 4 in. ; 10:47 BP 162 / 105; Pulse 75; Resp 16; Temp 97.2(TE); Pulse Ox 99% on R/A; nj1 08:56 Body Mass Index 39.48 (104.33 kg, 162.56 cm) iw ED Course: 08:44 Patient arrived in ED. rg4 08:46 Sameer Tijerina MD is Attending Physician. [facility] 08:58 Triage completed. iw 08:59 Arm band placed on. iw 09:06 Ilsa Stuart, RN is Primary Nurse. nj1 09:10 Patient has correct armband on for positive identification. Bed in low position. Call nj1 light in reach. Provided Education on: call light, fall precautions. 09:11 Flu Sent. bc6 09:11 SARS RAPID Sent. bc6 09:11 Strep Sent. bc6 09:11 COVID swab sent to lab. Flu and/or RSV swab sent to lab. Strep swab sent to lab. bc6 10:48 No provider procedures requiring assistance completed. Patient did not have IV access nj1 during this emergency room visit. Administered Medications: 10:40 Drug: predniSONE PO 60 mg PO once Route: PO; nj1 10:40 Drug: AZITHromycin PO 500 mg PO once Route: PO; nj1 Medication: 10:48 VIS not applicable for this client. nj1 Outcome: 10:34 Discharge ordered by . shawna 10:48 Discharged to home ambulatory, nj1 10:48 Condition: stable 10:48 Discharge instructions given to patient, Instructed on discharge instructions, follow up and referral plans. medication usage, Demonstrated understanding of instructions, follow-up care, medications, Prescriptions given X 4, 10:48 Patient left the ED. nj1 Signatures: Sameer Tijerina MD MD cha Williams, Irene, RN RN Kathie Mckeon rg4 Kelli Patel 6 Ilsa Stuart RN RN nj1 Corrections: (The following items were deleted from the chart) 09:00 08:56 BP 161 / 110; Pulse 81bpm; Resp 16bpm; Pulse Ox 100%; iw carla
--- NOTE | 2023-08-19 10:35 | EDPHYS ---
[facility] Name: Emilio Hernández Age: 32 yrs Sex: Female : 1990 Arrival Date: 08/19/2023 Time: 08:41 Bed 20 Private MD: RAHEL Physician Sameer Tijerina HPI: 08/18 10:24 This 32 yrs old Black Female presents to ER via Ambulatory with complaints of Ear Pain, shawna Sore Throat. 10:24 The patient presents with pain, that is acute. The complaints affect the right ear and shawna left ear. Historical: - Allergies: 08:58 No Known Allergies; iw - Home Meds: 08:58 None [Active]; iw - PMHx: 08:58 None; iw - PSHx: 08:58 section; iw 08:58 kidney stent X 2; iw - Immunization history:: Adult Immunizations not up to date. - Infectious Disease History:: Denies. - Social history:: Smoking status: Reported history of juuling and/or vaping. ROS: 10:26 Constitutional: Negative for fever, chills, and weight loss, Eyes: Negative for injury, shawna pain, redness, and discharge, Neck: Negative for injury, pain, and swelling, Cardiovascular: Negative for chest pain, palpitations, and edema, Respiratory: Negative for shortness of breath, cough, wheezing, and pleuritic chest pain, Abdomen/GI: Negative for abdominal pain, nausea, vomiting, diarrhea, and constipation, Back: Negative for injury and pain, : Negative for injury, bleeding, discharge, and swelling, MS/Extremity: Negative for injury and deformity, Skin: Negative for injury, rash, and discoloration, Neuro: Negative for headache, weakness, numbness, tingling, and seizure, Psych: Negative for depression, anxiety, suicide ideation, homicidal ideation, and hallucinations, Allergy/Immunology: Negative for hives, rash, and allergies, Endocrine: Negative for neck swelling, polydipsia, polyuria, polyphagia, and marked weight changes, Hematologic/Lymphatic: Negative for swollen nodes, abnormal bleeding, and unusual bruising, 10:26 ENT: Positive for of the uvula, left aspect of posterior pharynx and right aspect of posterior pharynx, rhinorrhea, sinus congestion, sore throat, Exam: 10:26 Constitutional: This is a well developed, well nourished patient who is awake, alert, shawna and in no acute distress. Head/Face: Normocephalic, atraumatic. Eyes: Pupils equal round and reactive to light, extra-ocular motions intact. Lids and lashes normal. Conjunctiva and sclera are non-icteric and not injected. Cornea within normal limits. Periorbital areas with no swelling, redness, or edema. Neck: Trachea midline, no thyromegaly or masses palpated, and no cervical lymphadenopathy. Supple, full range of motion without nuchal rigidity, or vertebral point tenderness. No Meningismus. Chest/axilla: Normal chest wall appearance and motion. Nontender with no deformity. No lesions are appreciated. Cardiovascular: Regular rate and rhythm with a normal S1 and S2. No gallops, murmurs, or rubs. Normal PMI, no JVD. No pulse deficits. Respiratory: Lungs have equal breath sounds bilaterally, clear to auscultation and percussion. No rales, rhonchi or wheezes noted. No increased work of breathing, no retractions or nasal flaring. Abdomen/GI: Soft, non-tender, with normal bowel sounds. No distension or tympany. No guarding or rebound. No evidence of tenderness throughout. Back: No spinal tenderness. No costovertebral tenderness. Full range of motion. Skin: Warm, dry with normal turgor. Normal color with no rashes, no lesions, and no evidence of cellulitis. MS/ Extremity: Pulses equal, no cyanosis. Neurovascular intact. Full, normal range of motion. Neuro: Awake and alert, GCS 15, oriented to person, place, time, and situation. Cranial nerves II-XII grossly intact. Motor strength 5/5 in all extremities. Sensory grossly intact. Cerebellar exam normal. Normal gait. Psych: Awake, alert, with orientation to person, place and time. Behavior, mood, and affect are within normal limits. 10:26 ENT: Posterior pharynx: Airway: normal, no evidence of obstruction, Tonsils: are normal in appearance, Uvula: normal, midline, non-edematous, no erythema, swelling, is not appreciated, erythema, that is mild, peritonsillar mass, is not appreciated, Vital Signs: 08:56 BP 161 / 110; Pulse 81; Resp 16; Temp 98; Pulse Ox 100% ; Weight 104.33 kg; Height 5 iw ft. 4 in. ; 10:47 BP 162 / 105; Pulse 75; Resp 16; Temp 97.2(TE); Pulse Ox 99% on R/A; nj1 08:56 Body Mass Index 39.48 (104.33 kg, 162.56 cm) iw MDM: 09:[address] [facility] 10:28 Differential diagnosis: otitis media, otitis externa. Data reviewed: vital signs, shawna nurses notes, lab test result(s), Flu: negative. Consideration of Admission/Observation Escalation of care including admission/observation considered. I considered the following discharge prescriptions or medication management in the emergency department Medications were administered in the Emergency Department. See MAR. Test considered but Not performed: Labs: no cbc, no cmp. Historians other than the Patient: pt well informed. Care significantly affected by the following chronic conditions: none. Counseling: I had a detailed discussion with the patient and/or guardian regarding the historical points, exam findings, and any diagnostic results supporting the discharge/admit diagnosis, lab results, the need for outpatient follow up, for definitive care, a family practitioner. 08/18 08:46 Order name: Strep [facility] 08/18 08:46 Order name: SARS RAPID; Complete Time: 10:[address] [facility] 08/18 08:46 Order name: Flu; Complete Time: 10:[address] [facility] 08/18 09:45 Order name: Throat Culture EDMS Administered Medications: 10:40 Drug: predniSONE PO 60 mg PO once Route: PO; nj1 10:40 Drug: AZITHromycin PO 500 mg PO once Route: PO; nj1 Disposition Summary: 08/19/23 10:34 Discharge Ordered Notes: Location: Home [facility] Problem: new [facility] Symptoms: have improved shawna Condition: Stable shawna Diagnosis - Acute upper respiratory infection, unspecified shawna - Acute pharyngitis, unspecified shawna Followup: shawna - With: Private Physician - When: 2 - 3 days - Reason: Recheck today's complaints, Continuance of care, Re-evaluation by your physician Discharge Instructions: - Discharge Summary Sheet shawna - Pharyngitis shawna - Sore Throat shawna - Upper Respiratory Infection, Adult shawna - Cool Mist Vaporizer shawna - Pharyngitis, [id number] shawna - Cough, Adult shawna Forms: - Medication Reconciliation Form shawna - Thank You Letter shawna - Antibiotic Education shawna - Prescription Opioid Use shawna - Patient Portal Instructions shawna - Leadership Thank You Letter shawna - Work release form nj1 Prescriptions: - Ibuprofen 600 mg Oral Tablet - take 1 tablet ORAL route every 6 hours As needed take with food; 30 tablet; [facility] Refills: 0, Product Selection Permitted - Zahida-D 12 Hour 60-120 mg Oral Tablet Sustained Release 12 hr - take 1 tablet ORAL route every 12 hours As needed; 20 tablet; Refills: 0, [facility] Product Selection Permitted - Medrol (Sandoval) 4 mg Oral Tablets, Dose Pack - take 1 tablet ORAL route as directed - follow package instructions; 1 packet; [facility] Refills: 0, Product Selection Permitted - Zithromax 500 mg Oral tablet - take 1 tablet ORAL route once daily for 5 days; 5 tablet; Refills: 0, Product [facility] Selection Permitted Signatures: Dispatcher [employer] Sameer Callejas MD MD cha Williams, Irene, RN RN iw Ilsa Stuart RN RN nj1
[2023-08-19] MEDS ORDERED: predniSONE 20 MG TAB ONE (10:37)
[2023-08-19] MEDS ORDERED: AZITHROMYCIN 250 MG TAB ONE (10:38)
[2023-08-19 11:24] VITALS: BP 162/105; TEMP 97.2; O2SAT 99
== END 2023-08-19 10:48 | disposition home or self-care (01) ==
LOC: ER 08:41
DX: J06.9 Acute upper respiratory infection, unspecified (principal); Z11.52 Encounter for screening for COVID-19; H92.03 Otalgia, bilateral
CPT/HCPCS: 87070; 36415; 87081; 87804 ×2; 99284; 87811; J7512